=== PATIENT | male | born 1970 ===

== ENCOUNTER 2019-10-05 13:28 | Outpatient (CLI) | payer MEDICAID ==
[2019-10-05 13:40] VITALS: BP 113/74
--- NOTE | 2019-10-05 19:00 | Consultation ---
DATE OF CONSULTATION: 10/05/2019 CHIEF COMPLAINT: Abdominal pain. HISTORY OF PRESENT ILLNESS: This is a 48-year-old male with past medical history of H. pylori infection status post treatment complaining of some right-sided lower abdominal pain that has been going on for a year. He had apparently CT scan done by primary care physician, which did not show any obvious pathology. Apparently, he has also family history of multiple colonic polyps. He is concerned about possible colon malignancy, so the patient is here for possible colonoscopy. PAST MEDICAL HISTORY: 1. H. pylori infection, gastritis. 2. Anxiety disorder. PAST SURGICAL HISTORY: Orthopedic surgery. MEDICATIONS: Please see medication reconciliation list. FAMILY HISTORY: Father had CVA. Mother had hypertension. Also family history of colonic polyps. SOCIAL HISTORY: The patient denies any alcohol. Denies any tobacco. He has history of methamphetamine usage. ALLERGIES: Shellfish. REVIEW OF SYSTEMS: Positive for abdominal pain, constipation. PHYSICAL EXAMINATION: VITAL SIGNS: Temperature 97.9, blood pressure is 130/74, pulse 63, respirations 20. HEENT: Normocephalic and atraumatic. Sclerae are anicteric. NECK: Supple. No adenopathy. CARDIOVASCULAR: Regular rate and rhythm. Plus S1 and S2. LUNGS: Decreased breath sounds bilaterally based on the supine exam. ABDOMEN: Soft, nontender. No rebound. No guarding. No peritoneal sign. EXTREMITIES: No cyanosis, no edema. ASSESSMENT AND PLAN: A 48-year-old male with complaint of abdominal pain, family history of colonic polyps. Negative CT. Also history of constipation. The patient needs colonoscopy for evaluation of above. The patient was given instructions for colonoscopy. Risks and benefits of procedure were explained to him. He agreed. We will plan to schedule when authorization is obtained. Henry Isaac M.D. DR: CHRIS JOB#: [id number] CC:
[2019-10-06] MEDS ORDERED: SENNA8.6 M2 PO (10:08)
[2019-10-06] MEDS ORDERED: MIRALAX17 G2 ORAL (10:08)
[2019-10-06] MEDS ORDERED: TERBINAFINE HC250 MG PO (10:08)
[2019-10-06] MEDS ORDERED: BISMUTH262 MG PO (10:08)
== END 2019-10-05 15:55 | disposition home or self-care (01) ==
LOC: PAN 13:28
DX: R10.31 Right lower quadrant pain (principal); F41.9 Anxiety disorder, unspecified; K59.00 Constipation, unspecified
CPT/HCPCS: G0463

== ENCOUNTER 2019-12-08 12:38 | Outpatient (CLI) | payer MEDICAID ==
[~2019-12-08 12:38] MED LIST: BISMUTH262 MG PO; MIRALAX17 G2 ORAL; SENNA8.6 M2 PO; TERBINAFINE HC250 MG PO
--- NOTE | 2019-12-12 14:35 | General Progress Note ---
Assessment/Plan Assessment/Plan: constipation hemorrhoids s/p colonoscopy doing better repeat colonoscopy in 10 years Subjective ROS Limited/Unobtainable: Yes Objective General Appearance: alert EENT: normal ENT inspection Neck: supple Cardiovascular: normal rate Respiratory/Chest: decreased breath sounds Abdomen: normal bowel sounds, non tender, soft Extremities: non-tender Henry Isaac MD Dec 12, 2019 14:35
== END 2019-12-08 14:38 | disposition home or self-care (01) ==
LOC: PAN 12:38
DX: K59.00 Constipation, unspecified (principal); K64.9 Unspecified hemorrhoids
CPT/HCPCS: 99212